=== PATIENT | male | born 1960 | race Caucasian/White ===

== ENCOUNTER 2016-10-12 01:50 | Emergency (ER) | payer OTHER ==
[2017-02-08] MEDS ORDERED: GLUCOTROL 10 MG10 MG PO (18:31)
[2017-02-08] MEDS ORDERED: NORVASC 5 MG TAB5 MG PO (18:31)
[2017-02-08] MEDS ORDERED: LIPITOR TAB 2020 MG PO (18:32)
[2017-02-08] MEDS ORDERED: CELEXA20 MG PO (18:33)
[2017-02-08] MEDS ORDERED: ASPIR 8181 MG PO (18:33)
[2017-02-12] MEDS ORDERED: COLCHICINE0.6 M1 PO (11:53)
[2017-02-12] MEDS ORDERED: MEDROL DOSEPAK 24 MG PO (12:03)
== END 2016-10-12 05:00 | disposition home or self-care (01) ==
LOC: ER1 01:50
DX: S93.601A Unspecified sprain of right foot, initial encounter (principal); S93.401A Sprain of unspecified ligament of right ankle, initial encounter; E11.9 Type 2 diabetes mellitus without complications; W11.XXXA Fall on and from ladder, initial encounter; Y92.009 Unspecified place in unspecified non-institutional (private) residence as the place of occurrence of the external cause
CPT/HCPCS: 73590; 73610; 73630; 99283; Q0162

== ENCOUNTER 2021-02-19 13:11 | Emergency (ER) | payer MEDICARE, OTHER ==
[~2021-02-19 13:11] MED LIST: ASPIR 8181 MG PO; CELEXA20 MG PO; COLCHICINE0.6 M1 PO; GLUCOTROL 10 MG10 MG PO; LIPITOR TAB 2020 MG PO; MEDROL DOSEPAK 24 MG PO; NORVASC 5 MG TAB5 MG PO
[2021-02-19 13:57] LABS: HEMOGLOBIN 14.9 gm/dl (14.0-17.5); RED BLOOD COUNT 4.96 M/UL (4.20-5.50); WHITE BLOOD COUNT 10.9 K/UL (4.5-11.0)
[2021-02-20] MEDS ORDERED: LIPITOR TAB 2020 MG PO (22:49)
[2021-02-20] MEDS ORDERED: AMLODIPINE BESYL5 MG PO (22:49)
[2021-02-20] MEDS ORDERED: PROZAC 20 MG CA20 MG PO (22:50)
[2021-02-20] MEDS ORDERED: HYDROXYZINE HCL25 MG PO (22:51)
[2021-02-20] MEDS ORDERED: GLUCOTROL 10 MG10 MG PO (22:51)
[2021-02-20] MEDS ORDERED: ASPIRIN EC81 MG PO (22:52)
[2021-02-20] MEDS ORDERED: LANTUS100 UNIT/1 SQ (22:52)
== END 2021-02-19 17:03 | disposition home or self-care (01) ==
LOC: ER1 13:11
PROVIDERS: Physician Assistant Medical
DX: N17.9 Acute kidney failure, unspecified (principal); R10.30 Lower abdominal pain, unspecified; E11.9 Type 2 diabetes mellitus without complications; I10 Essential (primary) hypertension; Z79.4 Long term (current) use of insulin
CPT/HCPCS: 80053; 81001; 85025; 96374; 99284; J1885; J7030

== ENCOUNTER 2021-02-20 11:36 | Observation (INO) | payer MEDICARE ==
[~2021-02-20] VITALS: Ht 172.7 cm; Wt 101.8 kg
[2021-02-20 12:56] LABS: HEMOGLOBIN 13.8 gm/dl (14.0-17.5); RED BLOOD COUNT 4.61 M/UL (4.20-5.50); WHITE BLOOD COUNT 9.8 K/UL (4.5-11.0)
[2021-02-20] MEDS ORDERED: AMLODIPINE BESYL5 MG PO (22:49)
[2021-02-20] MEDS ORDERED: LIPITOR TAB 2020 MG PO (22:49)
[2021-02-20] MEDS ORDERED: PROZAC 20 MG CA20 MG PO (22:50)
[2021-02-20] MEDS ORDERED: GLUCOTROL 10 MG10 MG PO (22:51)
[2021-02-20] MEDS ORDERED: HYDROXYZINE HCL25 MG PO (22:51)
[2021-02-20] MEDS ORDERED: ASPIRIN EC81 MG PO (22:52)
[2021-02-20] MEDS ORDERED: LANTUS100 UNIT/1 SQ (22:52)
[2021-02-21 10:02] LABS: HEMOGLOBIN 13.1 gm/dl (14.0-17.5); RED BLOOD COUNT 4.47 M/UL (4.20-5.50); WHITE BLOOD COUNT 11.3 K/UL (4.5-11.0)
[2021-02-22 10:08] LABS: HEMOGLOBIN 12.3 gm/dl (14.0-17.5); RED BLOOD COUNT 4.39 M/UL (4.20-5.50); WHITE BLOOD COUNT 11.3 K/UL (4.5-11.0)
[2021-02-22] MEDS ORDERED: MILK OF MAGNESI30 ML PO (12:54)
[2021-02-22] MEDS ORDERED: SENNA8.6 MG PO (12:54)
[2021-02-22] MEDS ORDERED: HYDROCODON-ACE1 EAC4 PO (12:54)
[2021-02-22] MEDS ORDERED: DOCUSATE SODIU100 MG PO (12:54)
[2021-02-22] MEDS ORDERED: AUGMENTIN 875-1 EACH PO (12:56)
== END 2021-02-22 16:21 | disposition home or self-care (01) ==
LOC: ER1 11:36 → CDU 14:46 → M/S 14:46
PROVIDERS: Physician Assistant; ADMIT Surgery
DX: K35.80 Unspecified acute appendicitis (principal); E11.9 Type 2 diabetes mellitus without complications; I10 Essential (primary) hypertension; E78.5 Hyperlipidemia, unspecified; M10.9 Gout, unspecified; Z79.4 Long term (current) use of insulin; Z79.82 Long term (current) use of aspirin; Z79.899 Other long term (current) drug therapy; Z20.822 Contact with and (suspected) exposure to COVID-19
CPT/HCPCS: 80048; 80053; 81001; 82962; 85025; 96374; 96375; 96376; 99285; G0378; J2270; J2405; J2543; J7030; U0002

== ENCOUNTER → 2021-03-24 | Outpatient (CLI) | payer MEDICARE, OTHER ==
[~2021-03-24] MED LIST changes: +AMLODIPINE BESYL5 MG PO; +ASPIRIN EC81 MG PO; +AUGMENTIN 875-1 EACH PO; +DOCUSATE SODIU100 MG PO; +HYDROCODON-ACE1 EAC4 PO; +HYDROXYZINE HCL25 MG PO; +LANTUS100 UNIT/1 SQ; +MILK OF MAGNESI30 ML PO; +PROZAC 20 MG CA20 MG PO; +SENNA8.6 MG PO
== END ==
LOC: KOH-I 03-06 15:30
DX: R91.8 Other nonspecific abnormal finding of lung field (principal)
CPT/HCPCS: 71250

== ENCOUNTER → 2021-09-05 | Outpatient (CLI) | payer MEDICARE | LOC: KOH-I 08:45 | DX: R91.8 Other nonspecific abnormal finding of lung field (principal) | CPT/HCPCS: 71250 ==